=== PATIENT | female | born 1955 | race Caucasian/White ===

== ENCOUNTER 2018-12-27 10:12 | Emergency (ER) | payer MEDICARE, OTHER, MEDICAID ==
[~2018-12-27] VITALS: Ht 160 cm; Wt 65.8 kg
[~2018-12-27 10:12] MED LIST: CLONAZEPAM0.5 MG PO; TEGRETOL XR200 MG PO; ULTRAM50 MG PO
--- OUTSIDE RECORDS SUMMARY | 2018-12-27 10:14 | XMS ---
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 Other Current PhD PHONE: Unknown Rhianna has no Care Guidelines for this patient. Marlen VISIT COUNT (12 MO.) 1 MICHELLE Patterson TOTAL 1 NOTE: Visits indicate total known visits. ED/UCC VISIT TRACKING (12 MO.) 12/27/2018 10:12 MICHELLE Kamara [place] TYPE: Emergency COMPLAINT: - COLD SYMPTOMS INPATIENT VISIT TRACKING (12 MO.) No inpatient visits to display in this time frame [id number]
[2018-12-27] MEDS ORDERED: OLOPATADINE HC2.5 ML OP (10:24)
== END 2018-12-27 10:30 | disposition home or self-care (01) ==
LOC: ED 10:12
DX: J00 Acute nasopharyngitis [common cold] (principal)

== ENCOUNTER 2019-08-01 08:06 | Emergency (ER) | payer MEDICARE, OTHER ==
[~2019-08-01] VITALS: Ht 160 cm; Wt 65.8 kg
[~2019-08-01 08:06] MED LIST changes: +OLOPATADINE HC2.5 ML OP
--- OUTSIDE RECORDS SUMMARY | 2019-08-01 08:08 | XMS ---
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 Other Current PhD PHONE: Unknown Rhianna has no Care Guidelines for this patient. Care History Medical/Surgical 12/28/2018 [facility] - Patient is currently established with [facility]. If patient is seen in the ED during business hours. Please contact CHWs at [facility]. Care Recommendation: This patient has had 5 or more Emergency Department visits in the last 12 months.\T\nbsp; Patient requires education on the scope and purpose of the ED as an acute care provider not a Primary Care Provider and should not be utilized for chronic conditions.\T\nbsp; These are guidelines and the provider should exercise clinical judgment when providing care. E.D. VISIT COUNT (12 MO.) 2 MICHELLE Patterson TOTAL 2 NOTE: Visits indicate total known visits. ED/UCC VISIT TRACKING (12 MO.) 08/01/2019 08:06 MICHELLE Kamara [place] TYPE: Emergency COMPLAINT: - COLD SYMPTOMS 12/27/2018 10:12 MICHELLE Kamara [place] TYPE: Emergency COMPLAINT: - COLD SYMPTOMS DIAGNOSES: - Acute nasopharyngitis [common cold] INPATIENT VISIT TRACKING (12 MO.) No inpatient visits to display in this time frame [id number]
[2019-08-01] MEDS ORDERED: TESSALON PERLE100 MG PO (08:39)
[2019-08-01] MEDS ORDERED: DOXYCYCLINE HY100 MG PO (08:39)
== END 2019-08-01 09:02 | disposition home or self-care (01) ==
LOC: ED 08:06
DX: J20.8 Acute bronchitis due to other specified organisms (principal); J32.9 Chronic sinusitis, unspecified; Z91.048 Other nonmedicinal substance allergy status
CPT/HCPCS: 99282

== ENCOUNTER 2020-12-08 07:22 | Day surgery (SDC) | payer MEDICARE, OTHER ==
[~2020-12-08] VITALS: Ht 160 cm; Wt 75.0 kg
[~2020-12-08 07:22] MED LIST changes: +ALLEGRA ALLERG180 MG PO; +CALCIUM 600 +1 EA14 PO; +DOXYCYCLINE HY100 MG PO; +NEURONTIN300 MG PO; +TESSALON PERLE100 MG PO
[2020-12-08] MEDS ORDERED: ASPIRIN81 MG PO (07:54)
--- NOTE | 2020-12-08 09:15 | NUR ---
12/08/20 0915 Joselyn Baker 0134 PT ARRIVED IN PACU SLEEPY WITH NO C/O'S. ABD SOFT AND PASSING FLATUS. 909 SITTING UP IN BED TALKING TO STAFF AND SIPPING ON JUICE. 914 DC INSTRUCTIONS GIVEN. ALL QUESTIONS ANSWERED.
--- NOTE | 2020-12-09 07:21 | OR ---
[facility] [address], [place] [address] Signed DATE OF OPERATION: 12/08/2020 SURGEON: Sree Talley MD PREOPERATIVE DIAGNOSES: 1. Screening. 2. Negative colonoscopy in 2006 (52). POSTOPERATIVE DIAGNOSIS: Minimal sigmoid diverticulosis. PROCEDURES: Colonoscopy without biopsy. ESTIMATED BLOOD LOSS: None. INDICATIONS: Idalia is a 65-year-old female, asked to see me for routine followup screening colonoscopy. She had a negative colonoscopy in [address] 52 [address] Benito Fairbanks while living in [place], [place]. Currently, she has no lower GI complaints. There is no family history of colon cancer or polyps. In the office, I gave her a pamphlet on colonoscopy and we looked at that together along with the risks including, but not limited to gas bloating, crampy abdominal pain, bleeding, perforation requiring surgery, and missed diagnosis. We also discussed the need for IV conscious sedation. She had expressed understanding and wished to proceed. PROCEDURE NOTE: Idalia was taken into our endoscopy suite and placed in the left lateral decubitus position. She was given 6 mg of Versed and 100 mcg of fentanyl to cover the case. A digital rectal exam was performed and she has very small external hemorrhoid tissue. She had good sphincter tone. No masses. Adult colonoscope was introduced and advanced all around into the cecum under direct visualization of camera without difficulty. Her prep was quite good. We could easily see the appendiceal orifice and the ileocecal valve. We had taken pictures throughout for photodocumentation. The scope was then slowly withdrawn. She had very tiny diverticula in the sigmoid colon. There are few in number, quite small and shallow. I am sure there of no clinical significance. The rectum was unremarkable. Upon retroflexion of the scope, there was no additional pathology noted above the anal canal. After this, the gas was suctioned out. The colonoscope was removed. Idalia tolerated the procedure quite well. Electronically Signed By: SREE TALLEY MD 12/09/20720 PATIENT NAME: IDALIA GAN OPERATIVE REPORT DATE OF : 55 REPORT #: [id number] PHYSICIAN: SREE TALLEY MD PCP: KAVITA SR MD REPORT IS CONFIDENTIAL AND NOT TO BE RELEASED WITHOUT AUTHORIZATION [address] [address] Signed RECOMMENDATIONS: Idalia can return in 10 years for repeat colonoscopy. Sree Talley MD ALB/MODL /[id number] cc: MD Sree Carnes MD Copies: SREE TALLEY MD ~ Electronically Signed By: SREE TALLEY MD 12/09/20720 PATIENT NAME: IDALIA GAN OPERATIVE REPORT DATE OF : 55 REPORT #: [id number] PHYSICIAN: SREE TALLEY MD PCP: KAVITA SR MD REPORT IS CONFIDENTIAL AND NOT TO BE RELEASED WITHOUT AUTHORIZATION
== END 2020-12-08 09:35 | disposition home or self-care (01) ==
LOC: DS 07:22 → OPS 07:22 → DS 09:00 → OPS 09:35
PROVIDERS: ATTEND Colon & Rectal Surgery
PROC: 0DJD8ZZ Inspection of Lower Intestinal Tract, Via Natural or Artificial Opening Endoscopic (ICD-10-PCS; principal; 2020-12-08 09:00)
DX: K57.30 Diverticulosis of large intestine without perforation or abscess without bleeding (principal); K64.4 Residual hemorrhoidal skin tags; J30.2 Other seasonal allergic rhinitis
CPT/HCPCS: 99153; G0500; J2250; J3010; J7121

== ENCOUNTER 2022-12-10 20:05 | Emergency (ER) | payer MEDICARE, OTHER ==
[~2022-12-10] VITALS: Ht 160 cm; Wt 80.0 kg
[~2022-12-10 20:05] MED LIST changes: +ASPIRIN81 MG PO
--- OUTSIDE RECORDS SUMMARY | 2022-12-10 20:08 | XMS ---
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 Care History Medical/Surgical 12/28/[address] [facility] - Patient is currently established with [facility]. If patient is seen in the ED during business hours. Please contact CHWs at [facility]. Care Recommendation: This patient has had 5 [...] providing care. E.D. VISIT COUNT (12 MO.) 1 [facility] TOTAL 1 NOTE: Visits indicate total known visits. ED/UCC VISIT TRACKING (12 MO.) 12/10/2022 20:06 MICHELLE Kamara [place] TYPE: Emergency COMPLAINT: - COUGH INPATIENT VISIT TRACKING (12 MO.) No inpatient visits to display in this time frame [id number]
[2022-12-10] MEDS ORDERED: IRON18 MG PO (20:20)
[2022-12-10] MEDS ORDERED: METHYLPREDNISOLO4 M1 PO (21:50)
== END 2022-12-10 22:02 | disposition home or self-care (01) ==
LOC: ED 20:05
DX: J20.8 Acute bronchitis due to other specified organisms (principal); Z20.822 Contact with and (suspected) exposure to COVID-19; Z91.048 Other nonmedicinal substance allergy status; Z79.899 Other long term (current) drug therapy; Z79.82 Long term (current) use of aspirin
CPT/HCPCS: 71045; 87502; C9803; J7512; Q0163; U0003

== ENCOUNTER 2022-12-28 20:35 | Emergency (ER) | payer OTHER, MEDICARE ==
[~2022-12-28] VITALS: Ht 160 cm; Wt 79.8 kg
[~2022-12-28 20:35] MED LIST changes: +IRON18 MG PO; +METHYLPREDNISOLO4 M1 PO
--- OUTSIDE RECORDS SUMMARY | 2022-12-28 20:38 | XMS ---
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 Care History Medical/Surgical 12/28/2018 [facility] - Patient is currently established with [facility]. If patient is seen in the ED during business hours. Please contact CHWs at [facility]. Care Recommendation: This patient has had [...] care. E.D. VISIT COUNT (12 MO.) [address] [facility] TOTAL 2 NOTE: Visits indicate total known visits. ED/UCC VISIT TRACKING (12 MO.) 12/28/2022 20:[address] [facility] [place] TYPE: Emergency COMPLAINT: - RT FOOT INJURY 12/10/2022 20:06 [facility] [place] TYPE: Emergency COMPLAINT: - COUGH DIAGNOSES: - half-way (current) use of aspirin - Acute bronchitis due to other specified organisms - Other nonmedicinal substance allergy status - Contact with and (suspected) exposure to COVID-19 - Other custodial (current) drug therapy - Cough, unspecified INPATIENT VISIT TRACKING (12 MO.) No inpatient visits to display in this time frame [id number]
== END 2022-12-28 23:48 | disposition home or self-care (01) ==
LOC: ED 20:35
DX: S92.311A Displaced fracture of first metatarsal bone, right foot, initial encounter for closed fracture (principal); S92.324A Nondisplaced fracture of second metatarsal bone, right foot, initial encounter for closed fracture; X50.1XXA Overexertion from prolonged static or awkward postures, initial encounter; W01.0XXA Fall on same level from slipping, tripping and stumbling without subsequent striking against object, initial encounter; Z91.048 Other nonmedicinal substance allergy status; Z79.899 Other long term (current) drug therapy; Z79.82 Long term (current) use of aspirin
CPT/HCPCS: 73630; 73700; A9270

== ENCOUNTER 2023-08-23 13:01 | Emergency (ER) | payer OTHER, MEDICARE ==
[~2023-08-23] VITALS: Ht 160 cm; Wt 82.0 kg
--- OUTSIDE RECORDS SUMMARY | 2023-08-23 13:05 | XMS ---
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 Care History Medical/Surgical 12/28/2018 [facility] - Patient is currently established with [facility]. If patient is seen in the ED during business hours. Please contact CHWs at [facility]. Care Recommendation: This patient has [...] providing care. E.D. VISIT COUNT (12 MO.) 3 MICHELLE Patterson TOTAL 3 NOTE: Visits indicate total known visits. ED/UCC VISIT TRACKING (12 MO.) 08/23/2023 13:02 MICHELLE Kamara [place] TYPE: Emergency COMPLAINT: - FALL, L FOOT PAIN 12/28/2022 20:35 [facility]HEL[facility] Kamara [place] TYPE: Emergency COMPLAINT: - RT FOOT INJURY DIAGNOSES: - Displaced fracture of first metatarsal bone, right foot, initial encounter for closed fracture - Fall on same level from slipping, tripping and stumbling without subsequent striking against object, initial encounter - terminal carman (current) use of aspirin - Nondisplaced fracture of second metatarsal bone, right foot, initial encounter for closed fracture - Other terminal operations supervisor (current) drug therapy - Other nonmedicinal substance allergy status - Overexertion from prolonged static or awkward postures, initial encounter - Pain in right foot 12/10/2022 20:06 MICHELLE Kamara [place] TYPE: Emergency COMPLAINT: - COUGH DIAGNOSES: - Acute bronchitis due to other specified organisms - Contact with and (suspected) exposure to COVID-19 - Cough, unspecified - correction (current) use of aspirin - Other terminal operations supervisor (current) drug therapy - Other nonmedicinal substance allergy status INPATIENT VISIT TRACKING (12 MO.) No inpatient visits to display in this time frame [id number]
[2023-08-23 15:00] VITALS: BP 117/66
== END 2023-08-23 15:01 | disposition home or self-care (01) ==
LOC: ED 13:01
DX: S90.32XA Contusion of left foot, initial encounter (principal); W01.0XXA Fall on same level from slipping, tripping and stumbling without subsequent striking against object, initial encounter; G40.909 Epilepsy, unspecified, not intractable, without status epilepticus; Z91.048 Other nonmedicinal substance allergy status; Z79.82 Long term (current) use of aspirin; Z79.899 Other long term (current) drug therapy
CPT/HCPCS: 73630; 99283-25

== ENCOUNTER 2025-05-22 18:39 | Emergency (ER) | payer MEDICARE, OTHER ==
[~2025-05-22] VITALS: Ht 160 cm; Wt 80.0 kg
[~2025-05-22 18:39] MED LIST changes: +AMOX TR-K CLV1 EAC1 PO; +CEPHALEXIN500 M1 PO; +GABAPENTIN300 MG PO; +HYDROCODON-ACE1 EA10 PO; +LAMOTRIGINE100 MG PO; +LAMOTRIGINE25 MG PO; +ONDANSETRON ODT8 MG PO; +PREDNISONE20 MG PO
[2025-05-22] MEDS ORDERED: LIDOCAINE HCL 4% 50 ML BTL TOP ONE (20:00)
[2025-05-22 20:36] VITALS: BP 124/67
== END 2025-05-22 20:38 | disposition home or self-care (01) ==
LOC: ED 18:39
DX: J39.2 Other diseases of pharynx (principal); R13.10 Dysphagia, unspecified; Z79.899 Other long term (current) drug therapy; Z79.82 Long term (current) use of aspirin
CPT/HCPCS: 70360; 99283

== ENCOUNTER 2025-10-14 11:03 | Emergency (ER) | payer MEDICARE, OTHER ==
[~2025-10-14] VITALS: Ht 160 cm; Wt 77.1 kg
[2025-10-14] MEDS ORDERED: AZESCO TABLET1 EACH (11:19)
[2025-10-14 12:07] VITALS: BP 106/63
== END 2025-10-14 12:11 | disposition home or self-care (01) ==
LOC: ED 11:03
DX: S93.601A Unspecified sprain of right foot, initial encounter (principal); X50.1XXA Overexertion from prolonged static or awkward postures, initial encounter; Z79.82 Long term (current) use of aspirin; Z79.899 Other long term (current) drug therapy
CPT/HCPCS: 73630; 99283